=== PATIENT | female | born 1965 | race Caucasian/White ===

== ENCOUNTER 2020-10-04 08:42 | Outpatient (RCR) | payer OTHER, SELFPAY ==
--- NOTE | 2020-10-04 07:53 | PTOPEVAL ---
Thank you for referring SEBAS BLAKE to [facility].? The patient is scheduled to be seen for therapy? ____x/week for ___ weeks. Please review, sign, date and return this plan of care JIMBO. I agree with and certify that the following plan of care is medically necessary. Referring Physician Date Admitting Provider: Attending Provider: SABRINA ANTOINE Referring Provider: *PT Outpatient Evaluation Start: 10/04/20 07:06 Freq: Status: Active Protocol: Document 10/04/20 07:03 [facility] (Rec: 10/04/20 07:52 [facility] [id number]) Therapy Assessment Status Assessment Status Assessment Status Evaluation Evaluation Information Problem Diagnosis chronic lower back pain with R foot pain Onset 06/15/20 Additional Evaluation Detail oswestry = 18% Subjective Information patient reports she has had Query Text:As Reported By Patient/ pain in the lower back about 3 Family years ago. she reports she has associated R foot pain only at night. she reports the foot pain is not consistent. she reports it will feel like a shooting/nerve pain. she reports her back pain feels like weakness across her lower back. she reports she has taken a few falls this past august. she reports she was chasing her niece. she reports she has foot pain inconsistently and only at night. she reports she has increased lower back with increased activities. she reports no pain with sitting. patient reports standing and stretching does feel better. Diagnostic Tests X-Rays For This Problem Yes: moderate DDD at L5-S1 and global facet hypertropy/OA Prior Level of Function Comments Additional Prior Level of Function patient reports she has had Comments pain up to about 3 years. she reports she is unable to do tasks around the house all day due to pain in her back. she reports her R foot symptoms are inconsistent, but reports they are more frequent over the past 4-5 months. Pain Assessment Timing of Pain Assessment Timing of P
--- NOTE | 2020-12-18 07:33 | PCPTNOTE ---
12/18/20 - patient has not been to therapy in over 2 months. she will be dc'd from skilled PT services this date, and all progress towards goals will be taken from her most recent evaluation/note. RONY
== END 2020-10-04 10:43 | disposition home or self-care (01) ==
LOC: CHSPT 08:42
DX: M54.41 Lumbago with sciatica, right side (principal); G89.29 Other chronic pain
CPT/HCPCS: 97110; 97140; 97161